=== PATIENT | male | born 1995 | race Two or more races ===

== ENCOUNTER 2024-04-17 05:38 | Emergency (ER) | payer OTHER ==
[~2024-04-17] VITALS: Ht 185.4 cm; Wt 121.9 kg
[2024-04-17 07:03] VITALS: BP 127/79; PULSE 75; RESP 18; TEMP 97.8; O2SAT 99
[2024-04-17] MEDS ORDERED: AMPICILLIN & SULBACTAM SODIUM 3 GM in SODIUM CHL 0.9% 100 ML IV ONE (07:30)
[2024-04-17] MEDS ORDERED: KETOROLAC TROMETH 30 MG/ML 1ML VIAL IV ONE (07:30)
[2024-04-17] MEDS ORDERED: BACDST PO (07:38)
[2024-04-17] MEDS ORDERED: MET500T PO (07:38)
[2024-04-17] MEDS: KETOROLAC TROMETH 30 MG/ML 1ML VIAL IM ONE (07:48)
[2024-04-17] MEDS: TETANUS-DIPTH-ACEL PERTUSSIS 0.5ML SYR Tdap IM ONE (07:48)
[2024-04-17] MEDS: NEOMYCIN-BACITRACIN-POLYM UNITDOSE PKG TOP OINT TOP ONE (08:22)
== END 2024-04-17 08:11 | disposition home or self-care (01) ==
LOC: ER 05:38
DX: S61.251A Open bite of left index finger without damage to nail, initial encounter (principal); Z88.1 Allergy status to other antibiotic agents; Z88.2 Allergy status to sulfonamides; W54.0XXA Bitten by dog, initial encounter; Y93.89 Activity, other specified; Y92.69 Other specified industrial and construction area as the place of occurrence of the external cause; Y99.8 Other external cause status
CPT/HCPCS: 73130; 96372; 99283; J1885; 90715